=== PATIENT | male | born 1990 | race Hispanic/Latino ===

== ENCOUNTER 2020-09-17 12:03 | Inpatient (IN) | payer SELFPAY ==
[2020-09-17] MEDS ORDERED: Morphine 4 MG/ML VIAL ONE (12:28)
[2020-09-17] MEDS ORDERED: Ondansetron PF 4 MG/2 ML Vial ONE ×2 (12:29→16:27)
[2020-09-17] MEDS ORDERED: Iopamidol 370 76% 50 ML VIAL FS ONE (12:39)
[2020-09-17] MEDS ORDERED: Iopamidol-370 76% 500 ML 1 ML ONE (12:39)
[2020-09-17 12:43] LABS: #Lymphocytes 0.9 thou/uL (1.20-3.40); #Monocytes 0.2 thou/uL (0.11-0.59); #Neutrophils 5.1 thou/uL (1.40-6.50); %Basophils 0.2 % (0.0-1.0); %Eosinophils 0.1 % (0.0-10.0); %Lymphocytes 14.7 % (21.0-51.0); %Monocytes 2.8 % (0.0-10.0); %Neutrophils 82.1 % (42.0-75.0); Hemoglobin 15.7 g/dL (14.0-18.0); Mean Corpuscular HGB CONC 35.9 g/dL (32.0-36.0); Mean Corpuscular Hemoglobin 31.1 pg (27.0-31.0); Mean Corpuscular Volume 86.7 fL (78.0-98.0); Mean Platelet Volume 8.6 fL (7.4-10.4); Platelet Count 198 thou/uL (130-400); RBC Distribution Width 11.5 % (11.5-14.5); Red Blood Cell (RBC) Count 5.04 mill/uL (4.70-6.10); White Blood Cell (WBC) Count 6.2 thou/uL (4.8-10.8)
[2020-09-17 13:06] LABS: ALT (SGPT) 7 U/L (8-55); AST (SGOT) 8 U/L (5-34); Albumin 4.5 g/dL (3.5-5.0); Alkaline Phosphatase 117 U/L (40-110); Anion Gap 20 mmol/L (10-20); BUN (Urea Nitrogen) 8 mg/dL (8.9-20.6); Bilirubin, Total 1.6 mg/dL (0.2-1.2); Calc. Creatinine Clearance 0 mL/min (70-130); Calcium 9.4 mg/dL (7.8-10.44); Carbon Dioxide 25 mmol/L (22-29); Chloride 94 mmol/L (98-107); Globulin 3.1 g/dL (2.4-3.5); Glucose 290 mg/dL (70-105); Potassium 3.1 mmol/L (3.5-5.1); Protein, Total 7.6 g/dL (6.0-8.3); Sodium 136 mmol/L (136-145)
[2020-09-17 13:58] LABS: Bilirubin Negative (Negative); Blood, Urine Negative (Negative); Clarity Clear (Clear); Glucose, Urine (Dipstick) Greater than 1000 mg/dL (Negative); Ketone, Urine 100 mg/dL (Negative); Leukocyte Negative Leu/uL (Negative); Nitrite Negative (Negative); Protein, Urine (Dipstick) Negative (Neg-Trace); Urobilinogen Normal mg/dL (Less than 2); pH, Urine 5.5 (5.0-9.0)
[2020-09-17 13:59] LABS: Specific Gravity, Urine 1.051 (1.002-1.036)
[2020-09-17] MEDS ORDERED: Piperacillin/Tazobactam 4.5 GM VIAL ONE (15:07)
[2020-09-17 15:40] LABS: Lactic Acid 1.1 mmol/L (0.5-2.2)
[2020-09-17] MEDS ORDERED: Lidocaine 1% w/Epinephrine 1:100K 20 ML VIAL ONE (15:42)
[2020-09-17] MEDS ORDERED: Bupivacaine 0.25% HCL 30 ML VIAL ONE (15:42)
[2020-09-17] MEDS ORDERED: Fentanyl 100 MCG/2 ML VIAL ONE ×2 (15:44→17:49)
[2020-09-17] MEDS ORDERED: Midazolam HCl 2 mg/2 ml Vial ONE (15:44)
[2020-09-17] MEDS ORDERED: Metoclopramide HCl 10 MG/2 ML VIAL ONE (16:27)
[2020-09-17] MEDS ORDERED: Succinylcholine 200 MG/10 ml SYRINGE FS ONE (16:27)
[2020-09-17] MEDS ORDERED: PROPOFOL 200 MG/20 ML VIAL ONE (16:27)
[2020-09-17] MEDS ORDERED: Rocuronium Bromide 10 MG/ML (10ML VIAL) ONE (16:27)
[2020-09-17] MEDS ORDERED: Glycopyrrolate 0.2 MG/ML 5 ML SYRINGE ONE (16:27)
[2020-09-17] MEDS ORDERED: Lidocaine 1% PF 5 ML VIAL ONE (16:27)
[2020-09-17] MEDS ORDERED: Ketorolac Tromethamine 30 MG/ML VIAL ONE (17:39)
[2020-09-17] MEDS ORDERED: Promethazine HCl 25 MG/ML VIAL IM PRN ×2 (17:44→17:55)
[2020-09-17] MEDS ORDERED: Ketorolac Tromethamine 30 MG/ML VIAL IVP PRN (17:44)
[2020-09-17] MEDS ORDERED: Promethazine HCl 25 MG/ML VIAL SLOW IVP PRN (17:44)
[2020-09-17] MEDS ORDERED: Ondansetron HCl/PF 4 MG/2 ML Vial IVP PRN (17:44)
[2020-09-17] MEDS ORDERED: Dextrose 50% Abboject 50 ML SYRINGE SLOW IVP PRN (17:55)
[2020-09-17] MEDS ORDERED: Dextrose 5% in Water 1,000 ML IV PRN (17:55)
[2020-09-17] MEDS ORDERED: Ondansetron PF 4 MG/2 ML Vial IVP PRN (17:55)
[2020-09-17] MEDS ORDERED: hydrALAZINE 20 MG/ML VIAL SLOW IVP PRN (17:55)
[2020-09-17] MEDS ORDERED: Morphine 2 MG/ML VIAL SLOW IVP PRN (17:55)
[2020-09-17] MEDS: Piperacillin/Tazobactam 3.375 GM in Sodium Chloride 0.9% 100 ML IVPB SCH ×2 (19:41→23:03)
[2020-09-17] MEDS: Sodium Chloride 0.9% 1,000 ML IV SCH (19:42)
[2020-09-17] MEDS: Famotidine/PF 20 mg/2ml Vial SLOW IVP SCH (19:44)
[2020-09-17] MEDS: Famotidine 20 MG TAB PO SCH (19:44)
[2020-09-17 21:40] VITALS: BMI 20.3
[2020-09-17 21:58] LABS: SARS-CoV-2 PCR by NAA Not Detected (NotDetected)
[2020-09-18] MEDS: Sodium Chloride 0.9% 1,000 ML IV SCH ×3 (04:21→10:20)
[2020-09-18 05:50] LABS: Hemoglobin A1c 13.2 % (4.0-6.0)
[2020-09-18] MEDS: HumaLOG 300 UNITS/3 ML VIAL SC PRN ×3 (05:52→17:42)
[2020-09-18] MEDS: Piperacillin/Tazobactam 3.375 GM in Sodium Chloride 0.9% 100 ML IVPB SCH ×4 (05:53→23:12)
[2020-09-18 05:55] LABS: Anion Gap 11 mmol/L (10-20); BUN (Urea Nitrogen) 8 mg/dL (8.9-20.6); Calc. Creatinine Clearance 128 mL/min (70-130); Calcium 7.8 mg/dL (7.8-10.44); Carbon Dioxide 23 mmol/L (22-29); Chloride 101 mmol/L (98-107); Glucose 203 mg/dL (70-105); Potassium 3.3 mmol/L (3.5-5.1); Sodium 132 mmol/L (136-145)
[2020-09-18 06:14] LABS: #Lymphocytes 0.9 thou/uL (1.20-3.40); #Monocytes 0.5 thou/uL (0.11-0.59); #Neutrophils 7.5 thou/uL (1.40-6.50); %Eosinophils 0.1 % (0.0-10.0); %Lymphocytes 10.4 % (21.0-51.0); %Neutrophils 83.4 % (42.0-75.0); Hemoglobin 11.9 g/dL (14.0-18.0); Mean Corpuscular HGB CONC 33.8 g/dL (32.0-36.0); Mean Corpuscular Volume 88.7 fL (78.0-98.0); Mean Platelet Volume 8.8 fL (7.4-10.4); Platelet Count 159 thou/uL (130-400); RBC Distribution Width 11.5 % (11.5-14.5); Red Blood Cell (RBC) Count 3.96 mill/uL (4.70-6.10); White Blood Cell (WBC) Count 8.9 thou/uL (4.8-10.8)
[2020-09-18] MEDS: Famotidine 20 MG TAB PO SCH ×2 (08:22→19:19)
[2020-09-18] MEDS: Famotidine/PF 20 mg/2ml Vial SLOW IVP SCH ×2 (08:22→19:18)
[2020-09-18] MEDS: HYDROcodone/Acetaminophen 10/325 mg Tablet PO PRN ×2 (08:22→17:41)
[2020-09-18] MEDS: Morphine 4 MG/ML VIAL SLOW IVP PRN ×2 (10:18→14:46)
[2020-09-18] MEDS ORDERED: metFORMIN 500 MG TAB PO SCH (17:00)
[2020-09-18] MEDS ORDERED: Fentanyl 100 MCG/2 ML VIAL SLOW IVP PRN (20:57)
[2020-09-18] MEDS: Acetaminophen 500 MG TAB PO PRN (21:10)
[2020-09-19] MEDS: Sodium Chloride 0.9% 1,000 ML IV SCH ×2 (00:24→17:34)
[2020-09-19] MEDS: HYDROcodone/Acetaminophen 10/325 mg Tablet PO PRN ×3 (00:24→20:16)
[2020-09-19] MEDS: HumaLOG 300 UNITS/3 ML VIAL SC PRN ×5 (00:24→21:11)
[2020-09-19] MEDS: Piperacillin/Tazobactam 3.375 GM in Sodium Chloride 0.9% 100 ML IVPB SCH ×4 (05:33→23:57)
[2020-09-19] MEDS: Famotidine 20 MG TAB PO SCH ×2 (09:21→20:16)
[2020-09-19] MEDS: Famotidine/PF 20 mg/2ml Vial SLOW IVP SCH ×2 (09:21→20:36)
[2020-09-19] MEDS ORDERED: Potassium Chloride 20 MEQ TAB PO SCH (10:15)
[2020-09-19 11:01] LABS: #Eosinphils 0.1 thou/uL (0.0-0.7); #Lymphocytes 0.9 thou/uL (1.20-3.40); #Monocytes 0.6 thou/uL (0.11-0.59); #Neutrophils 9.1 thou/uL (1.40-6.50); %Basophils 0.2 % (0.0-1.0); %Eosinophils 1.1 % (0.0-10.0); %Lymphocytes 8.6 % (21.0-51.0); %Monocytes 5.6 % (0.0-10.0); %Neutrophils 84.6 % (42.0-75.0); Hemoglobin 11.1 g/dL (14.0-18.0); Mean Corpuscular HGB CONC 32.5 g/dL (32.0-36.0); Mean Corpuscular Hemoglobin 29.2 pg (27.0-31.0); Mean Corpuscular Volume 89.9 fL (78.0-98.0); Mean Platelet Volume 8.1 fL (7.4-10.4); Platelet Count 177 thou/uL (130-400); RBC Distribution Width 11.5 % (11.5-14.5); White Blood Cell (WBC) Count 10.7 thou/uL (4.8-10.8)
[2020-09-19] MEDS: Acetaminophen 500 MG TAB PO PRN ×2 (11:06→17:35)
[2020-09-19 11:15] LABS: Anion Gap 15 mmol/L (10-20); BUN (Urea Nitrogen) 9 mg/dL (8.9-20.6); Calc. Creatinine Clearance 120 mL/min (70-130); Calcium 8.6 mg/dL (7.8-10.44); Carbon Dioxide 21 mmol/L (22-29); Chloride 98 mmol/L (98-107); Glucose 249 mg/dL (70-105); Potassium 3.4 mmol/L (3.5-5.1); Sodium 131 mmol/L (136-145)
[2020-09-19 14:21] LABS: Lactic Acid 0.9 mmol/L (0.5-2.2)
[2020-09-19] MEDS ORDERED: metFORMIN 500 MG TAB PO SCH (17:00)
[2020-09-19] MEDS: Morphine 4 MG/ML VIAL SLOW IVP PRN (20:42)
[2020-09-20] MEDS: Morphine 4 MG/ML VIAL SLOW IVP PRN ×2 (04:25→17:21)
[2020-09-20] MEDS: HYDROcodone/Acetaminophen 10/325 mg Tablet PO PRN ×3 (04:25→20:10)
[2020-09-20] MEDS: Piperacillin/Tazobactam 3.375 GM in Sodium Chloride 0.9% 100 ML IVPB SCH ×4 (06:13→23:01)
[2020-09-20 06:15] LABS: #Eosinphils 0.3 thou/uL (0.0-0.7); #Neutrophils 8.1 thou/uL (1.40-6.50); %Basophils 0.3 % (0.0-1.0); %Eosinophils 2.8 % (0.0-10.0); %Lymphocytes 9.9 % (21.0-51.0); %Monocytes 9.5 % (0.0-10.0); %Neutrophils 77.5 % (42.0-75.0); Hemoglobin 10.4 g/dL (14.0-18.0); Mean Corpuscular HGB CONC 31.7 g/dL (32.0-36.0); Mean Corpuscular Hemoglobin 28.3 pg (27.0-31.0); Mean Corpuscular Volume 89.1 fL (78.0-98.0); Mean Platelet Volume 7.4 fL (7.4-10.4); Platelet Count 219 thou/uL (130-400); RBC Distribution Width 11.3 % (11.5-14.5); Red Blood Cell (RBC) Count 3.66 mill/uL (4.70-6.10); White Blood Cell (WBC) Count 10.4 thou/uL (4.8-10.8)
[2020-09-20] MEDS: HumaLOG 300 UNITS/3 ML VIAL SC PRN ×3 (06:16→17:33)
[2020-09-20 06:35] LABS: Anion Gap 17 mmol/L (10-20); BUN (Urea Nitrogen) 6 mg/dL (8.9-20.6); Calc. Creatinine Clearance 132 mL/min (70-130); Calcium 8.1 mg/dL (7.8-10.44); Carbon Dioxide 18 mmol/L (22-29); Chloride 98 mmol/L (98-107); Glucose 186 mg/dL (70-105); Potassium 3.9 mmol/L (3.5-5.1); Sodium 129 mmol/L (136-145)
[2020-09-20] MEDS: Sodium Chloride 0.9% 1,000 ML IV SCH ×3 (06:56→22:30)
[2020-09-20] MEDS ORDERED: HumaLOG 300 UNITS/3 ML VIAL SC PRN (07:52)
[2020-09-20] MEDS ORDERED: Insulin Regular 300 UNITS/3 ML VIAL SC PRN (07:54)
[2020-09-20] MEDS ORDERED: Sodium Chloride 0.9% 1,000 ML IV SCH (07:55)
[2020-09-20] MEDS ORDERED: Sodium Chloride 0.9% 500 ML IV SCH (08:00)
[2020-09-20] MEDS: NPH, Human Insulin Isophane 300 UNIT/3 ML VIAL SC SCH (08:37)
[2020-09-20] MEDS: Famotidine 20 MG TAB PO SCH ×2 (08:38→20:10)
[2020-09-20] MEDS: Famotidine/PF 20 mg/2ml Vial SLOW IVP SCH ×2 (08:39→22:45)
[2020-09-20] MEDS ORDERED: Lantus 1000 UNITS/10 ML VIAL SC SCH (09:00)
[2020-09-20] MEDS ORDERED: Milk Of Magnesia 30 ML UDCUP PO SCH ×2 (13:00→13:15)
[2020-09-20] MEDS: Acetaminophen 500 MG TAB PO PRN (15:34)
[2020-09-20] MEDS ORDERED: NPH, Human Insulin Isophane 300 UNIT/3 ML VIAL SC SCH (21:00)
[2020-09-21] MEDS: Acetaminophen 500 MG TAB PO PRN (05:06)
[2020-09-21] MEDS: HYDROcodone/Acetaminophen 10/325 mg Tablet PO PRN ×2 (05:06→11:11)
[2020-09-21] MEDS: Piperacillin/Tazobactam 3.375 GM in Sodium Chloride 0.9% 100 ML IVPB SCH ×2 (05:07→11:08)
[2020-09-21 05:37] LABS: #Eosinphils 0.3 thou/uL (0.0-0.7); #Lymphocytes 1.3 thou/uL (1.20-3.40); #Monocytes 1.2 thou/uL (0.11-0.59); %Basophils 0.2 % (0.0-1.0); %Eosinophils 2.7 % (0.0-10.0); %Lymphocytes 13.5 % (21.0-51.0); %Monocytes 12.4 % (0.0-10.0); %Neutrophils 71.1 % (42.0-75.0); Mean Corpuscular HGB CONC 34.5 g/dL (32.0-36.0); Mean Corpuscular Hemoglobin 30.4 pg (27.0-31.0); Mean Corpuscular Volume 88.2 fL (78.0-98.0); Mean Platelet Volume 6.8 fL (7.4-10.4); Platelet Count 269 thou/uL (130-400); RBC Distribution Width 11.2 % (11.5-14.5); Red Blood Cell (RBC) Count 3.63 mill/uL (4.70-6.10); White Blood Cell (WBC) Count 9.9 thou/uL (4.8-10.8)
[2020-09-21 05:58] LABS: ALT (SGPT) 17 U/L (8-55); AST (SGOT) 22 U/L (5-34); Alkaline Phosphatase 137 U/L (40-110); Anion Gap 14 mmol/L (10-20); BUN (Urea Nitrogen) 5 mg/dL (8.9-20.6); Bilirubin, Total 0.6 mg/dL (0.2-1.2); Calc. Creatinine Clearance 145 mL/min (70-130); Calcium 8.4 mg/dL (7.8-10.44); Carbon Dioxide 22 mmol/L (22-29); Chloride 98 mmol/L (98-107); Globulin 2.9 g/dL (2.4-3.5); Glucose 148 mg/dL (70-105); Potassium 3.4 mmol/L (3.5-5.1); Protein, Total 5.9 g/dL (6.0-8.3); Sodium 131 mmol/L (136-145)
[2020-09-21] MEDS: Potassium Chloride 20 MEQ TAB PO SCH ×2 (08:08→11:07)
[2020-09-21] MEDS: Famotidine 20 MG TAB PO SCH (08:08)
[2020-09-21] MEDS: Famotidine/PF 20 mg/2ml Vial SLOW IVP SCH (08:09)
[2020-09-21] MEDS: NPH, Human Insulin Isophane 300 UNIT/3 ML VIAL SC SCH (08:09)
[2020-09-21] MEDS ORDERED: Saccharomyces boulardii 250 MG CAP PO SCH (09:00)
[2020-09-21] MEDS: HumaLOG 300 UNITS/3 ML VIAL SC PRN (11:40)
[2020-09-21 12:04] VITALS: BP 136/84; TEMP 98.1
== END 2020-09-21 15:15 | disposition home or self-care (01) | DRG 853 ==
LOC: EDBD 12:03 → ERS 12:03 → SDC/OP 16:14 → SURG A 17:42
PROVIDERS: ADMIT Surgery; ATTEND Surgery
PROC: 0DTJ4ZZ Resection of Appendix, Percutaneous Endoscopic Approach (ICD-10-PCS; principal; 2020-09-17)
DX: A41.9 Sepsis, unspecified organism (principal); K35.32 Acute appendicitis with perforation, localized peritonitis, and gangrene, without abscess; K56.7 Ileus, unspecified; E87.2 Acidosis; E87.1 Hypo-osmolality and hyponatremia; R65.20 Severe sepsis without septic shock; E11.9 Type 2 diabetes mellitus without complications; I10 Essential (primary) hypertension; E86.0 Dehydration; E87.6 Hypokalemia; Z20.822 Contact with and (suspected) exposure to COVID-19
CPT/HCPCS: 36415; 36416; 74177; 80048; 80053; 81003; 83036; 83605; 83690; 83735; 83930; 85025; 87040; 87635; 88304; 96365; 96375; J0360; J1815; J1885; J2250; J2270; J2405; J2543; J2550; J2704; J2765; J3010; J3490; J7620; Q9967; S0020; S0028; U0003; U0005